=== PATIENT | male | born 1960 | race Caucasian/White ===

== ENCOUNTER → 2018-02-06 06:00 | Day surgery (SDC) | payer OTHER ==
[2018-02-05 10:16] LABS: BASOPHILS 0.3 % (0-2); HEMATOCRIT 43.8 % (42.0-54.0); IMMATURE GRANULOCYTES 0.5 % (0-5); LYMPHOCYTES 27.4 % (15-50); MCH 30.6 pg (26.0-34.0); MCHC 34.2 g/dL (31.0-37.0); MCV 89.4 fL (80.0-100.0); MEAN PLATELET VOLUME 9.4 fL (7.4-10.4); MONOCYTES 10.5 % (2-11); NEUTROPHILS 60.3 % (40-80); PLATELET COUNT 228 10x3/uL (130-400); RDW 12.6 % (11.5-14.5); WBC 7.3 10x3/uL (4.8-10.8)
[2018-02-05 10:21] LABS: CALCIUM 9.3 mg/dL (8.5-10.1); CARBON DIOXIDE 28.1 mmol/L (21.0-32.0); CREATININE - SERUM 1.1 mg/dL (0.6-1.3); POTASSIUM - SERUM 4.1 mmol/L (3.5-5.1)
[~2018-02-06] VITALS: Ht 175.3 cm; Wt 98.9 kg
[~2018-02-06 06:00] MED LIST: COREG12.5 MG PO; COZAAR100 MG PO; FLOMAX0.4 MG PO; HCTZ25 MG PO; MIRALAX17 GM PO; NORCO 10-325 TA1 TAB PO; PRED-FORTE 1% OP5 ML EACH EYE; TRICOR145 MG PO
[2018-02-06 07:11] VITALS: BP 137/82; Ht 175.3 cm; Wt 98.9 kg
--- NOTE | 2018-02-06 09:55 | NUR ---
REC'D FROM RR. FAMILY AT BEDSIDE. SMALL AMT. DRAINAGE FROM NAVEL INCISION. WATER BROUGHT TO PT. FL TRAY ORDERED.
--- NOTE | 2018-02-06 10:20 | NUR ---
CHICHO ZARATE SERVED. AT BEDSIDE. NO CHANGES NOTED. RATES PAIN 2.5.
--- NOTE | 2018-02-06 10:35 | NUR ---
TOLERATED FL DIET. NO URGE TO VOID. ICE WATER AND COFFEE BROUGHT TO PT.
--- NOTE | 2018-02-06 11:10 | NUR ---
NO URGE TO VOID. WRITTEN AND VERBAL DC INST GIVEN TO PT ALONG WITH RX. VERBALIZED UNDERSTANDING.
--- NOTE | 2018-02-06 11:20 | NUR ---
CONTINUES TO NOT HAVE THE URGE TO VOID. COFFEE AND WATER BROUGHT TO PT.
--- NOTE | 2018-02-06 12:00 | NUR ---
PT ABLE TO VOID. IV DC'D WITH CATHETER INTACT.
--- NOTE | 2018-02-06 12:25 | NUR ---
DC'D HOME WITH FAMILY VIA PRIVATE VEHICLE. TAKEN TO VEHICLE VIA WC. STABLE AT TIME OF DC.
--- NOTE | 2018-02-09 17:55 | OP ---
PATIENT NAME: SARA PAZ MEDICAL RECORD: [id number] :64 LOCATION:D.OPS ADMISSION DATE: SURGEON: TAMIR RIOS MD DATE OF OPERATION: 02/06/2018 PREOPERATIVE DIAGNOSES: 1. Biliary dyskinesia. 2. Hypertension. 3. Hypercholesterolemia. POSTOPERATIVE DIAGNOSES: 1. Biliary dyskinesia. 2. Hypertension. 3. Hypercholesterolemia. PROCEDURE: Laparoscopic cholecystectomy. SURGEON: Tamir Rios MD REPORT OF PROCEDURE: The patient's abdomen was prepped and draped in sterile fashion. A cutdown was made on the superior aspect of the umbilicus, 0 Vicryls were placed in the fascia bilaterally and the fascia was incised with 15-blade. I then bluntly entered the peritoneal cavity and placed a 12-mm Giovanni port. Under direct visualization, a 5 mm trocar was placed in the epigastrium and 2 more 5-mm trocars were placed in the right subcostal region. The gallbladder was grasped and elevated. There were some inflammatory fatty adhesions present to this and these were teased down carefully with blunt dissection and electrocautery. The cystic artery and cystic duct were dissected free and these were clipped proximally and distally and ligated in standard fashion. The gallbladder was then taken off the liver bed using electrocautery and placed into the right upper quadrant. Any bleeding from the liver bed was then treated with electrocautery. At this point, the ports and insufflation were then removed and the gallbladder was taken out through the umbilicus. The umbilical fascia was closed with interrupted 0 Vicryls times 3. The wounds were then irrigated out with normal saline and infused with 10 mL of 0.25% Marcaine with epinephrine. The skin incisions were all closed with subcutaneous 5-0 Monocryl and dressed appropriately. COMPLICATIONS: None. CONDITION: Stable. ANESTHESIA: General endotracheal and local. BLOOD LOSS: Minimal. TRANSINT:[id number] Voice Confirmation ID: [id number] DOCUMENT ID: [id number] OPERATIVE REPORT [id number] SARA PAZ CHRISTIAN MD at 1755 CC: REMBERTO RODRIGUEZ V [id number] DICTATION DATE: 02/06/18 0916 ASSEMBLY MACHINE SET UP MECHANIC: 02/06/18 1005 [facility] 02/06/18 [facility] [address] [facility] [place] [address]
== END | disposition home or self-care (01) ==
LOC: D.OPS 06:00 → EDBD 08:00 → D.PAN 08:00 → D.OPS 08:00
PROVIDERS: Surgery
DX: K81.1 Chronic cholecystitis (principal); I10 Essential (primary) hypertension; E78.00 Pure hypercholesterolemia, unspecified

== ENCOUNTER → 2018-07-07 08:27 | Outpatient (CLI) | payer OTHER ==
[2018-02-06 07:11] VITALS: BMI 32.2
== END | disposition home or self-care (01) ==
LOC: D.RAD 08:27
PROVIDERS: ATTEND Internal Medicine Gastroenterology
DX: Z87.19 Personal history of other diseases of the digestive system (principal); R14.3 Flatulence; R14.0 Abdominal distension (gaseous)

== ENCOUNTER → 2019-09-30 08:54 | Outpatient (CLI) | payer OTHER ==
[2018-02-06 07:11] VITALS: BMI 32.2
== END | disposition home or self-care (01) ==
LOC: D.HCCARDIO 08:54 → D.HCCECHO 09:30 → D.HCCARDIO 09:30
PROVIDERS: ATTEND Internal Medicine Cardiovascular Disease
DX: I10 Essential (primary) hypertension (principal)

== ENCOUNTER 2019-10-20 11:02 | Day surgery (SDC) | payer OTHER ==
[~2019-10-20] VITALS: Ht 175.3 cm; Wt 100.5 kg
--- NOTE | ~2019-10-20 | HEMODYNAMI ---
PATIENT:SARA PAZ MEDICAL RECORD: [id number] : 64 LOCATION:[facility] ADMISSION DATE: 10/20/19 Generatedon:10/20/201913:37 Patient name: SARA PAZ Patient #: [id number] SSN: [id number] : 1960 Date of study: 10/20/2019 Page: Of Hemodynamic Procedure Report Patient Data Patient Demographics Procedure consent was obtained First Name: SARA Gender: Male Last Name: BRANDI : 1960 Middle Initial: J Age: 59 year(s) Patient #: [id number] Race: SSN: [id number] Additional ID: [id number] Contact details Address: [address] [place] [address] COURT State: [place] City: [place] Zip code: [address] Admission Admission Data Admission Date: 10/20/2019 Admission Time: 11:02 Arrival Date: 10/20/2019 Arrival Time: 0:00 Insurance Payor: Private health insurance [facility] #: [id number] Height (in.): 68.9 BSA: 2.15 (m2) Height (cm.): 175 BMI: 32.65 (kg/m2) Weight (lbs.): 220.46 Weight (kg.): 100 Lab Results Lab Result Date: 10/20/2019 Lab Result Time: 0:00 Biochemistry Name Units Result Min Max BUN mg/dl 21 --(----)-* 7 18 Creatinine mg/dl 1.1 --(--*-)-- 0.6 1.3 eGFR ml/min 73.26119 *-(----)-- 90 120 NONAFRICAN CBC Name Units Result Min Max Hematocrit % 45.8 --(-*--)-- 42 54 Hemoglobin g/dl 15.9 --(--*-)-- 13.5 17.5 Procedure Procedure Types Cath Procedure Diagnostic Procedure LHC LHC w/Coronaries Sedation Charges Moderate Sedation up to 15 minutes Procedure Description Procedure Date Procedure Date: 10/20/2019 Procedure Start Time: 13:11 Procedure End Time: 13:29 Procedure Staff Name Function Darnell Darling MD Performing Physician Evelin Carter RT Monitor Laya Gray RT Scrub Preethi Lomas RN Nurse Lianna Benavidez RT Copper Plate Printer Indication Pulmonary hypertension Procedure Data Cath Procedure Fluoroscopy Diagnostic fluoroscopy Total fluoroscopy Time: 4 time: 4 min min Diagnostic fluoroscopy Total fluoroscopy dose: 588 dose: 588 mGy mGy Contrast Material Contrast Material Type Amount (ml) Isovue 300 52 Entry Location Entry Primary Successful Side Size Upsize Upsize Entry Closure Desai ccessful Closure Location (Fr) 1 (Fr) 2 (Fr) Remarks Device Remarks Radial Right 6 Fr Mechanical artery Short Compression Estimated blood loss: 10 ml Diagnostic catheters Device Type Used For End Catheter Placement DIAGNOSTIC Matt 110cm Procedure 5Fr catheter ([id number]) DIAGNOSTIC Rosiclare 110cm 5 Procedure Fr catheter ([id number]) DIAGNOSTIC AR MOD 5Fr Procedure Catheter ([id number]) Procedure Complications No complications Procedure Medications Medication Administration Route Dosage Oxygen etCO2 Nasal cannula 2 l/min Lidocaine 2% added to field 20 Heparin Flush Bag added to field 2 bags (1000units/500ml NS) 0.9% NaCl I.V. 100 ml/hr Radial Cocktail added to field 1 syringe (Verapamil 2mg/Nitro 400mcg/Heparin 1500units) Versed I.V. 2 mg Fentanyl I.V. 100 mcg Versed I.V. 2 mg Fentanyl I.V. 100 mcg Versed I.V. 2 mg Hemodynamics Rest BSA: 2.15 (m2) O2 Consumption: Estimated: 264.74 (ml/min) O2 Consumption indexed : Estimated:123.13 (ml/min/m) Heart Rate: 83 (bpm) Pressure Samples Time Site Value (mmHg) Purpose Heart Use Rate(bpm) 13:18 LV 177/-8,17 Snapshot 90 13:18 AO 148/84(113) Pullback 93 13:18 LV 173/-8,12 Pullback 93 Gradients Valve Time Site 1 Site 2 Mean SEP/DFP Peak To Heart Use (mmHg) (sec/min) Peak Rate (mmHg) (bpm) Aortic 13:18 LV AO 14 19 25 93 173/-8,12 148/84(113) Calculations Valve P-P Mean Valve Index Valve Source Name Gradient Area Flow (cm2) Aortic 25 14 25 14 Snapshots Pre Cath Intra NCS Post Cath Vital Signs Time Heart Resp SPO2 etCO2 NIBP (mmHg) Rhythm Pain Sedation Rate (ipm) (%) (mmHg) Status Level (bpm) 12:57:44 75 22 98 35.3 151/94(129) NSR 0 (11) 10(A) , No pain 13:02:03 79 27 96 38.2 151/91(125) NSR 0 (11) 10(A) , No pain 13:06:25 76 13 96 38.2 156/92(130) NSR 0 (11) 10(A) , No pain 13:10:49 87 13 93 0 144/85(114) NSR 0 (11) 9(A) , No pain 13:15:11 80 11 93 22.5 139/74(117) NSR 0 (11) 9(A) , No pain 13:19:31 83 14 98 35.2 152/87(100) NSR 0 (11) 9(A) , No pain 13:23:45 83 13 100 24.7 138/81(112) NSR 0 (11) 9(A) , No pain 13:28:05 80 15 97 41.2 152/84(118) NSR 0 (11) 10(A) , No pain Medications Time Medication Route Dose Verified Delivered Reason Notes Effectiveness by by 12:57:45 Oxygen etCO2 2 l/min Darnell Buffie used for Nasal Phong Lomas RN procedure cannula 12:58:55 Lidocaine 2% added 20ml Darnell Darnell for local to vial Phong Darling MD anesthetic field 12:59:38 Heparin Flush added 2 bags Darnell Darnell used for Bag to Phong Darling MD procedure (1000units/500ml field NS) 13:01:06 0.9% NaCl I.V. 100 Darnell Buffie used for ml/hr Phong Lomas RN procedure 13:01:55 Radial Cocktail added 1 Darnell Darnell for (Verapamil to syringe Phong Darling MD vasodilation 2mg/Nitro field 400mcg/Heparin 1500units) 13:08:00 Versed I.V. 2 mg Darnell Buffie for sedation Phong Lomas RN 13:08:07 Fentanyl I.V. 100 mcg Darnell Buffie for sedation Phong Lomas RN 13:15:24 Versed I.V. 2 mg Darnell Buffie for sedation Phong Lomas RN 13:15:28 Fentanyl I.V. 100 mcg Darnell Buffie for sedation Phong Lomas RN 13:22:28 Versed I.V. 2 mg Darnell Buffie for sedation Phong Lomas RN Procedure Log Time Note 12::25 Indication : Pulmonary hypertension 12::18 Lab Result : Hematocrit 45.8 % 12::18 Lab Result : eGFR NONAFRICAN 73.04194 ml/min 12::18 Lab Result : Hemoglobin 15.9 g/dl 12::18 Lab Result : BUN 21 mg/dl 12::18 Lab Result : Creatinine 1.1 mg/dl 12:29:27 Informed consent obtained and on chart 12:29:36 Patient Height : 68.9 inches 12:29:58 Patient Weight : 220.46 lbs 12:30:53 Stress Test: yes; abnormal INFERIOR 12:30:57 Lab results completed and on chart. 12:32:30 Procedure Status Elective Heart Cath (OP). 12:32:34 Time tracking: Regular hours (M-F 7:00 - 5:00) 12:42:56 Lianna Benavidez RT(R) sent for patient. Start room use. 12:48:39 Arrival Date: 10/20/2019 12:00:00 AM 12:48:54 Insurance Payor : Private health insurance 12:49:17 Warm blankets applied, and eugenio hugger turned on for patient comfort. 12:49:17 Correct patient and procedure confirmed by team. 12:49:18 ECG and BP/O2 sat monitors applied to patient. 12:49:26 H&P Date Dictated: 10/20/2019 Within 30 days and on chart., H&P Addendum completed by physician on day of procedure. (MUST COMPLETE FOR ALL OUTPATIENTS). 12:49:38 Pre-procedure instructions explained to patient. 12:49:41 Family in patients room. 12:49:43 Patient NPO since Midnight. 12:50:13 Is the patient allergic to Iodine/contrast media? No. 12:50:15 Was the patient premedicated? Yes 12:50:16 Is patient on blood thinner?No 12:50:18 Patient diabetic? No. 12:50:22 Snore? Yes 12:50:23 Sleep apnea? Yes 12:50:31 Patient pain scale 0/10 ?. 12:50:39 IV patent on arrival in left forearm with 0.9% NaCl at [facility]. 12:56:25 Vital chart was started 12:57:45 Oxygen 2 l/min etCO2 Nasal cannula was administered by Preethi Lomas RN; used for procedure; Verbal order read back and verified. 12:58:55 Lidocaine 2% 20ml vial added to field was administered by Darnell Darling MD; for local anesthetic; Verbal order read back and verified. 12:59:38 Heparin Flush Bag (1000units/500ml NS) 2 bags added to field was administered by Darnell Darling MD; used for procedure; Verbal order read back and verified. 13:01:06 0.9% NaCl 100 ml/hr I.V. was administered by Preethi Lomas RN; used for procedure; Verbal order read back and verified. 13:01:55 Radial Cocktail (Verapamil 2mg/Nitro 400mcg/Heparin 1500units) 1 syringe added to field was administered by Darnell Darling MD; for vasodilation; Verbal order read back and verified. 13:05:25 Right Radial & Right Groin area was prepped with chlora-prep and draped in sterile fashion 13:05:27 Alarms reviewed by R. N. 13:05:28 Sharps counted by scrub and verified by R.N. 13:07:42 Physician arrived 13:07:43 --------ALL STOP TIME OUT------ 13:07:43 Final Timeout: patient, procedure, and site verified with staff and physician. All members of the team are in agreement. 13:07:47 Right Radial & Right Groin site verified by team. 13:07:51 Fire Safety Assessment: A--An alcohol-based skin anteseptic being used preoperatively., C--Open oxygen or nitrous oxide is being used., D--An ESU, laser, or fiber-optic light is being used. 13:07:56 Physical assessment completed. ASA score P 2 - A patient with mild systemic disease as per Darnell Darling MD. 13:07:59 2) 60-89 Mildly reduced kidney function, and other findings (as for stage 1) point to kidney disease. 13:08:00 Versed 2 mg I.V. was administered by Preethi Lomas RN; for sedation; Verbal order read back and verified. 13:08:02 Maximum allowable contrast dose (3.7 X eGFR X 0.75)202 ml. 13:08:07 Fentanyl 100 mcg I.V. was administered by Preethi Lomas RN; for sedation; Verbal order read back and verified. 13:08:09 Baseline sample Acquired. 13:08:11 Full Disclosure recording started 13:08:20 Sedation plan: IV Moderate Sedation Medication:Versed, Fentanyl 13:09:05 Use device set Femoral Dx 13:09:07 ACIST Syringe (55659) opened to sterile field. 13:09:08 Bag Decanter (2002S) opened to sterile field. 13:09:12 Medline Cath Pack ([id number]) opened to sterile field. 13:09:13 ACIST Hand Control (73661) opened to sterile field. 13:09:17 ACIST Manifold (44191) opened to sterile field. 13:09:18 Tegaderm 4 x 4 (1626W) opened to sterile field. 13:09:21 EMERALD Guide Wire (435-073) opened to sterile field. 13:09:27 Use device set Radial Dx or PCI 13:09:35 SHEATH 6FR RAIN (6098156) opened to sterile field. 13:09:38 NEEDLE Cook 21G 4cm Radial (V58747) opened to sterile field. 13:09:39 MBrace Wrist Support ([id number]) opened to sterile field. 13:09:46 Procedure started. 13:11:46 Local anesthetic to right radial artery with Lidocaine 2% by Darnell Darling MD.INITIAL ACCESS ONLY 13:12:08 A 6 Fr Short sheath was inserted into the Right Radial artery 13:12:14 Zero performed for pressure channel P1 13:13:21 A DIAGNOSTIC Matt 110cm 5Fr catheter (499703) was advanced over the wire and used for Procedure. 13:15:24 Versed 2 mg I.V. was administered by Preethi Lomas RN; for sedation; Verbal order read back and verified. 13:15:28 Fentanyl 100 mcg I.V. was administered by Preethi Lomas RN; for sedation; Verbal order read back and verified. 13:17:23 LV angiography performed. 13:18:34 EF : 60 % 13:20:05 Catheter removed. 13:20:13 A DIAGNOSTIC Rosiclare 110cm 5 Fr catheter (554929) was advanced over the wire and used for Procedure. 13:22:18 LCA angiography performed. 13:22:28 Versed 2 mg I.V. was administered by Preethi Lomas RN; for sedation; Verbal order read back and verified. 13:23:34 Catheter removed. 13:26:12 A DIAGNOSTIC AR MOD 5Fr Catheter ([id number]) was advanced over the wire and used for Procedure. 13:26:35 RCA angiography performed. 13:26:37 Catheter removed. 13:26:40 TR BAND Standard ([id number]) opened to sterile field. 13:27:14 Sheath removed intact; hemostasis achieved with Mechanical Compression to the Right Radial artery. 13:27:27 Procedure ended.(Physican Out) 13:27:40 Fluoroscopy time 04.00 minutes. 13:27:51 Fluoroscopy dose: 588 mGy 13:27:51 Flurop Dose total: 588 13:27:58 Dose Area Product 17573 mGy/cm. 13:28:04 Contrast amount:Isovue 300 52ml. 13:28:07 Maximum allowable dose exceeded? No. 13:28:10 Sharps counted by scrub and verified by R.N. 13:28:23 Post right radial artery:stable 13:28:36 Post-procedure physical assessment completed. ASA score P 1 - A normal healthy patient as per Darnell Darling MD. 13:28:39 Post procedure rhythm: unchanged. 13::42 Estimated blood loss: 10 ml 13:28:43 Post procedure instruction explained to patient.Patient verbalizes understanding. 13:29:03 Procedure type changed to Cath procedure, Diagnostic procedure, LHC, LHC w/Coronaries, Sedation Charges, Moderate Sedation up to 15 minutes 13:29:04 Procedure and supply charges have been captured, reviewed, submitted and are correct. 13:29:25 Procedure Complication : No complications 13:29:30 Vital chart was stopped 13:29:33 [facility] Findings: mild to moderate CAD (<70%) 13:29:42 See physician's report for complete and final results. 13:29:45 Report given to Pre/Post Procedure Room. 13:29:48 Patient transfered to Pre/Post Procedure Room with Stretcher. 13:29:50 Procedure ended. 13:29:50 Full Disclosure recording stopped 13:29:54 End room use (Document Last) 13:36:14 End room use (Document Last) 13:36:49 End room use (Document Last) Device Usage Item Name Manufacture Quantity Catalog Hospital Part Current Minima l Lot# / Number Charge Number Stock Stock Serial# Code ACIST Acist 1 27795 855055 625388 615842 20 Syringe Medical (30971) Systems Inc Bag Microtek 1 462367 21865 019074 5 Decanter Medical Inc. () Medline Medline 1 [id number] 817928 64008 212202 5 Cath Pack ([id number]) ACIST Hand Acist 1 74984 470137 953289 910253 5 Control Medical (33788) Systems Inc ACIST Acist 1 33671 340433 607492 599117 5 Manifold Medical (81345) Systems Inc Tegaderm 4 3M 1 1626W 118563 908557 993729 5 x 4 (1626W) EMERALD Cardinal 1 502-455 402359 997985 385785 5 Guide Wire Health (502455) SHEATH 6FR Cardinal 1 7024020 684152 6605005 263399 5 ForceManager Health (5083897) NEEDLE Cook Cook Medical 1 B73110 864254 631871 882017 5 21G 4cm Radial (M90563) MBrace Advanced 1 140-0250-00 807815 67965 742923 5 Wrist Vascular Support Dynamics ([id number]) DIAGNOSTIC Terumo 1 40-5023 066378 035104 437193 5 Matt 110cm 5Fr catheter (458631) DIAGNOSTIC Terumo 1 40-5013 729646 942008 042069 5 Rosiclare 110cm 5 Fr catheter (566672) DIAGNOSTIC Cardinal 1 [id number] 843949 774579 866930 15 AR MOD 5Fr Health Catheter (807042M) TR BAND Terumo 1 EVD24-FPB 963932 949805 357848 40 Standard ([id number]) Signature Audit Tripp Stage Time Signature Unsigned Intra-Procedure 10/20/2019 Evelin Carter 1:36:14 PM RT(R) Intra-Procedure 10/20/2019 Preethi Lomas RN 1:36:49 PM Intra-Procedure 10/20/2019 Darnell Darling MD 1:37:17 PM [facility] [address] [place] [address]
[2019-10-20] MEDS ORDERED: ZYRTEC10 MG PO (11:27)
[2019-10-20] MEDS ORDERED: FLUTICASONE PRO16 GM NASAL (11:28)
[2019-10-20 11:35] VITALS: BP 153/90; Ht 175.3 cm; Wt 100.5 kg
[2019-10-20 11:56] LABS: BASOPHILS 0.3 % (0-2); EOSINOPHILS 1.5 % (0-7); HEMATOCRIT 45.8 % (42.0-54.0); HEMOGLOBIN 15.9 g/dL (13.5-17.5); IMMATURE GRANULOCYTES 0.6 % (0-5); LYMPHOCYTES 24.7 % (15-50); MCH 31.4 pg (26.0-34.0); MCHC 34.7 g/dL (31.0-37.0); MCV 90.3 fL (80.0-100.0); MEAN PLATELET VOLUME 9.5 fL (7.4-10.4); MONOCYTES 7.7 % (2-11); NEUTROPHILS 65.2 % (40-80); PLATELET COUNT 186 10x3/uL (130-400); RBC 5.07 10x6/uL (4.20-6.10); RDW 12.3 % (11.5-14.5); WBC 7.8 10x3/uL (4.8-10.8)
[2019-10-20] MEDS ORDERED: HCTZ25 MG PO (12:02)
[2019-10-20 12:04] LABS: CHOL - HDL RATIO 3.2 ratio (2.3-4.9); LDL-HDL RATIO 1.6 ratio (1.5-3.5)
[2019-10-20 12:16] LABS: ANION GAP 12.3 mmol/L (8-16); CALCIUM 8.7 mg/dL (8.5-10.1); CARBON DIOXIDE 27.2 mmol/L (21.0-32.0); CREATININE - SERUM 1.1 mg/dL (0.6-1.3); POTASSIUM - SERUM 4.5 mmol/L (3.5-5.1)
--- NOTE | 2019-10-20 13:45 | NUR ---
PT REC'D TO ROOM 5 VIA STRETCHER FROM BARBER STYLIST. MONITORS ESTAB. AT BS. SEE FLOAT BUILDER. ALARMS ON AND C/L IN REACH.
--- NOTE | 2019-10-20 14:00 | NUR ---
R WRIST SITE C/D/I, NO S/S BLEEDING OR HEMATOMA. PULSES PALP. VSS. PT GIVEN WATER PER REQUEST. REFUSED SANDWICH AT THIS TIME. ALARMS ON AND C/L IN REACH.
--- NOTE | 2019-10-20 14:30 | NUR ---
VSS. R WRIST SITE C/D/I. PULSES PALP. PT DENIES PAIN OR NEEDS. C/L IN REACH, ALARMS ON.
--- NOTE | 2019-10-20 14:45 | NUR ---
PT RESTING QUIETLY, R WRIST SITE C/D/I, NO S/S BLEEDING OR SWELLING. PULSES PALP. ALARMS ON AND C/L IN REACH.
--- NOTE | 2019-10-20 15:00 | NUR ---
3CC AIR REMOVED FROM ZBAND, WILL CONT CLOSE MONITORING.
--- NOTE | 2019-10-20 15:15 | NUR ---
TOTAL 5CC AIR REMOVED FROM Z BAND. PULSES PALP, NO S/S BLEEDING OR HEMATOMA. VSS.
--- NOTE | 2019-10-20 15:30 | NUR ---
ALL AIR REMOVED FROM Z BAND, NO S/S BLEEDING OR HEMATOMA. PULSES PALP. VSS. WILL CONT CLOSE MONITORING.
--- NOTE | 2019-10-20 15:50 | NUR ---
R WRIST SITE C/D/I. NO S/S BLEEDING. ZBAND REMOVED AND DSG APPLIED. PIV D/C'D INTACT, DSG APPLIED. ALL DISCHARGE INSTRUCTIONS REVIEWED WITH PT AND HIS - BOTH VERBALIZE UNDERSTANDING.
--- NOTE | 2019-10-20 16:00 | NUR ---
PT D/C'D VIA WC TO PRIVATE VEHICLE WITH ALL PAPERWORK AND BELONGINGS.
== END 2019-10-20 16:00 | disposition home or self-care (01) ==
LOC: D.CATH 11:02
PROVIDERS: ATTEND Internal Medicine Cardiovascular Disease
DX: R06.09 Other forms of dyspnea (principal); R94.39 Abnormal result of other cardiovascular function study; I10 Essential (primary) hypertension; E78.5 Hyperlipidemia, unspecified

== ENCOUNTER → 2019-11-17 09:11 | Outpatient (CLI) | payer OTHER ==
[2019-10-20 11:35] VITALS: BMI 32.7
[~2019-11-17 09:11] MED LIST changes: +FLUTICASONE PRO16 GM NASAL; +ZYRTEC10 MG PO
== END | disposition home or self-care (01) ==
LOC: D.US 09:00
PROVIDERS: ATTEND Internal Medicine Cardiovascular Disease
DX: R42 Dizziness and giddiness (principal)